=== PATIENT | male | born 1955 | race Caucasian/White ===

== ENCOUNTER → 2016-11-10 | Day surgery (SDC) | payer BC, OTHER ==
[~2016-11-10] VITALS: Ht 175.3 cm; Wt 75.7 kg
[~2016-11-10] MED LIST: ACYCLOVIR 400400 MG PO; PERCOCET PO
--- NOTE | ~2016-11-10 | H ---
[facility] [place] [address] HISTORY AND PHYSICAL Name: YADIRA GODOY Room #: REG [facility] M..#: [id number] Admission: 11/10/16 Attend Phys: Haile Barajas MD Discharge: Date of : 57 Report #: [id number] THIS REPORT FOR: //name// CC: Mark Bocanegra MD FAM unknown Haile Barajas PREOPERATIVE DIAGNOSIS: Bilateral inguinal hernia, here for repair. HISTORY OF PRESENT ILLNESS: The patient is a 61-year-old who has noticed a bulge in the right groin for several years. Recently, he has become more aware of it. He noticed a gurgling in the groin on and off. No history of nausea, no vomiting. The patient denies any bloating. Bowels are working well. No difficulty urinating. He has been avoiding lifting because of the bulge. No family history of hernias. The patient does not think that the hernia on the right side has gotten any bigger. When he was seen in the office, he was found to have a left inguinal hernia. The left side is fairly small, but I am sure that it is there. He is here for laparoscopic repair of bilateral inguinal hernia. PAST MEDICAL HISTORY: The patient is healthy. He denies any heart disease, high blood pressure, diabetes, lung disease, kidney disease, bleeding disorder or history of blood clot. MEDICATIONS: Viagra and acyclovir. PAST SURGICAL HISTORY: Left knee replacement in 2014. ALLERGIES: THE PATIENT IS ALLERGIC TO PENICILLIN. This was in his childhood. FAMILY HISTORY: Father had Alzheimer and mother had epilepsy. Mother at young age at 45. SOCIAL HISTORY: The patient is self employed. Does not smoke. He has two drinks per night. REVIEW OF SYSTEMS: Unremarkable. No chest pain, shortness of breath, palpitation. No headache, blurred vision. No back pain, no extremity weakness, numbness. PHYSICAL EXAMINATION: GENERAL: The patient is a well-nourished male in no acute distress. HEENT: Pupils react to light. Extraocular muscles are intact. Oropharynx is clear. NECK: Soft and supple, no masses, no JVD. LUNGS: Clear to auscultation. HEART: Regular rate and rhythm. No murmur or gallop. [facility] [address] [place] [address] HISTORY AND PHYSICAL Name: YADIRA GODOY Room #: REG [facility] M..#: [id number] Admission: 11/10/16 Attend Phys: Haile Barajas MD Discharge: Date of : 57 Report #: [id number] ABDOMEN: Soft, nondistended, nontender. No mass, guarding, rigidity or rebound. The patient does have bilateral inguinal hernia. The right side is pretty large. The left side is small Both are reducible. EXTREMITIES: No cyanosis, clubbing or edema. GENITOURINARY: Testicles are descended without masses. IMPRESSION: The patient is a 61-year-old with bilateral inguinal hernia. Repair is recommended. Laparoscopic approach is recommended. The details of laparoscopic repair was discussed. The risk of bleeding, infection, mesh infection was discussed. The patient understands the procedure and wishes to proceed. Risk of mesh infection was also discussed. Hernia recurrence was discussed. <ELECTRONICALLY SIGNED> By: Haile Barajas MD 12/24/16 1207 [id number] Haile Barajas MD /nt
--- NOTE | ~2016-11-10 | O ---
[facility] [place] [address] OPERATIVE REPORT Name: YADIRA GODOY Room #: REG [facility].#: [id number] Admission: 11/10/16 Attend Phys: Haile Barajas MD Discharge: Date of : 57 Report #: [id number] THIS REPORT FOR: //name// CC: AGATHA Barajas DATE OF SERVICE: 11/10/2016 PREOPERATIVE DIAGNOSIS: Bilateral inguinal hernia. POSTOPERATIVE DIAGNOSIS: Bilateral direct inguinal hernia. SURGEON: Haile Barajas M.D. ANESTHESIA: General anesthesia. COMPLICATIONS: None. ESTIMATED BLOOD LOSS: 5 mL. PROCEDURE NOTE: With the patient under general anesthesia, a Grider catheter was placed and IV antibiotic was administered. Abdomen was prepped and draped in a sterile fashion. Timeout was performed. Marcaine 0.25% was used to anesthetize the skin adjacent to the umbilicus. A 2-cm incision was made. The fascia was identified. Fascia was then opened, anterior rectus sheath was then opened. Muscle was spread. The space between the muscle and the posterior sheath was bluntly dissected. A balloon trocar was then placed through the space. CO2 was placed. Under visualization, a 5-mm trocar was placed about 2 inches below the umbilicus. The rest of the properitoneal space was then dissected free. The wall lateral to the right inferior epigastric artery was isolated. A second 5-mm trocar was placed here. The dissection was then carried out on the left side. The patient did have a thinned floor consistent with a direct defect. The cord structures were identified on the left side. The peritoneal reflection was identified. There was no indirect sac. There was no cord lipoma. The peritoneum was freed off of the cord further proximally. Again, the floor was quite thin, you could even see the cord through the thin wall. There is an attenuation, a bulge in this area too. The right side hernia is much larger. There is fat that is adhesed to the thinned wall. Once the fat was freed from the thin wall, the direct defect was easily visualized. Fairly significant size. The dissection was then carried laterally over the right cord. The peritoneal reflection is a little more prominent on this site, almost up to the internal ring level. The peritoneum was free from the cord and brought more proximally. Both sites were cleaned off. There was no indirect sac on the right side. Left-sided 3DMax lightweight mesh was placed. This is a large mesh. This was folded and then opened in the properitoneal space. This was [facility] [address] [place] [address] OPERATIVE REPORT Name: YADIRA GODOY Room #: REG [facility]..#: [id number] Admission: 11/10/16 Attend Phys: Haile Barajas MD Discharge: Date of : 57 Report #: [id number] tacked laterally to the wall with SorbaFix and then inferiorly medial to the Fernando's ligament with SorbaFix and then medially superiorly to the rectus muscle. A right-sided mesh, large 3DMax lightweight was used. This was opened up and covered the direct defect well. Covered the internal ring well. Again, tacked with SorbaFix. The CO2 was then evacuated. Trocars removed. The fascia defect adjacent to the umbilicus in the anterior rectus sheath was closed with [id number] 0 Vicryl x 2. The patient tolerated the procedure well. Skin was irrigated, closed with 5-0 PDS, Steri-Stripped and Band-Aids applied. <ELECTRONICALLY SIGNED> By: Haile Barajas MD 12/24/16 1207 0756 1034 Haile Barajas MD /nt
--- NOTE | ~2016-11-10 | EKG ---
[address] [place] [address] ELECTROCARDIOGRAM REPORT Name: YADIRA GODOY Room #: REG [facility].#: [id number] Admission: 11/10/16 Attend Phys: Haile Barajas MD Discharge: Date of : 57 Report #: [id number] THIS REPORT FOR: //name// [facility] Test Date: 2016-11-10 Test Time: 12:40:02 Pat Name: YADIRA GODOY Department: Room: Gender: Dietitian Therapeutic: WILLIS : 1955 Requested By: Haile Barajas Order Number: [id number] MD: Richard Shafer Measurements Intervals [place] Rate: 53 P: -2 CO: 152 QRS: 27 QRSD: 79 T: 34 QT: 428 QTc: 402 Interpretive Statements Sinus bradycardia Borderline low voltage, extremity leads No previous ECG available for comparison Electronically Signed On 11-11-2016 13:35:59 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
[2016-11-10 12:30] VITALS: BP 139/82
[2016-11-10 12:56] LABS: HEMATOCRIT 40.7 % (42.0-52.0); HEMOGLOBIN 13.7 gm/dL (14.0-18.0)
[2016-11-10 15:52] VITALS: BP 139/82
== END | disposition home or self-care (01) ==
LOC: OR 08:35
PROVIDERS: Surgery
DX: K40.20 Bilateral inguinal hernia, without obstruction or gangrene, not specified as recurrent (principal); Z96.652 Presence of left artificial knee joint
CPT/HCPCS: 50010; 50101; 50411; 50507; 50555; 50848; 50886; 53307; 56525; 56526; 62110; 62900; 70005